=== PATIENT | female | born 1965 | race Caucasian/White ===

== ENCOUNTER → 2021-07-21 | Outpatient (CLI) | payer OTHER ==
[~2021-07-21] MED LIST: ACETAMINOPHEN-1 EAC1 PO; ADDERALL; ALPRAZOLAM; AUGMENTIN 875875 MG PO; CYCLOBENZAPRINE5 MG PO; FLEXERIL PO; LEXAPRO; LUNESTA3 MG PO; NAPROSYN500 MG PO; PROGESTERONE; ZOLOFT
[2021-07-21 15:33] LABS: ABSOLUTE LYMPHOCYTES 1.4 thou/uL (0.8-5.3); ABSOLUTE MONOCYTES 0.4 thou/uL (0.0-1.2); ABSOLUTE NEUTROPHILS 2.4 thou/uL (1.6-8.1); BASOPHILS 0.5 %; EOSINOPHILS 0.6 %; HEMATOCRIT 40.4 % (37.0-47.0); HEMOGLOBIN 14.2 gm/dL (12.0-15.0); LYMPHOCYTES 32.5 %; MCH 38.7 pg (26.0-34.0); MCHC 35.2 g/dL (28.0-37.0); MCV 109.8 fL (80.0-100.0); MONOCYTES 9.7 %; MPV 6.7 fl. (7.2-11.1); NUCLEATED RBCS 0 /100WBC; PLATELET COUNT* 371 thou/uL (150-400); POLYS 56.7 %; RBC 3.67 mil/uL (4.20-5.00); RDW-CV 13.4 % (10.5-14.5); WBC 4.2 thou/uL (4.0-11.0)
[2021-07-21 15:48] LABS: ALBUMIN 3.7 g/dL (3.4-5.0); CALCIUM 8.8 mg/dL (8.5-10.1); POTASSIUM 3.4 mmol/L (3.5-5.1); TOTAL BILIRUBIN 0.5 mg/dL (<0.1-1.0); TOTAL PROTEIN 7.2 g/dL (6.4-8.2)
[2021-07-21 16:42] LABS: ESR (SEDRATE) 3 mm/hr (0-30)
== END ==
LOC: M.LAB 14:59
PROVIDERS: ATTEND Nurse Practitioner Adult Health
DX: R11.0 Nausea (principal); R53.83 Other fatigue; K50.00 Crohn's disease of small intestine without complications; Z86.010 Personal history of colon polyps